=== PATIENT | female | born 1960 | race Caucasian/White ===

== ENCOUNTER → 2018-04-13 | Outpatient (CLI) | payer OTHER | LOC: M.RAD 10:54 | DX: Z12.31 Encounter for screening mammogram for malignant neoplasm of breast (principal) ==

== ENCOUNTER → 2018-10-31 | Outpatient (CLI) | payer OTHER | LOC: M.ULTRA 09:00 | DX: N63.0 Unspecified lump in unspecified breast (principal); R92.2 Inconclusive mammogram ==

== ENCOUNTER → 2020-01-23 | Outpatient (CLI) | payer OTHER | LOC: M.RAD 07:50 | PROVIDERS: ATTEND Nurse Practitioner Family | DX: Z12.31 Encounter for screening mammogram for malignant neoplasm of breast (principal) ==